=== PATIENT | male | born 1955 | race Two or more races ===

== ENCOUNTER 2018-06-20 15:22 | Emergency (ER) | payer MEDICAID ==
[~2018-06-20] VITALS: Ht 177.8 cm; Wt 104.3 kg
--- NOTE | 2018-06-20 15:27 | NUR ---
CONTACT INFO: [facility]:
--- NOTE | 2018-06-20 15:30 | NUR ---
BIB [facility] 79,SENT BY PMD TO R/O MENINGITIS DUE TO 1 WEEK FEVER/HEADACHE AND NECK STIFFNESS. PT AAOX4, DENIES CP, SOB, DIZZINESS, N/V/D @ THIS TIME. PT SEEN & EVAL'D BY DR. LOVE & WILL CONT TO MONITOR.
[2018-06-20] MEDS ORDERED: ACETAMINOPHEN ES 500 MG TABLET ONE (15:52)
[2018-06-20] MEDS ORDERED: ACET-868 PO (15:52)
[2018-06-20] MEDS ORDERED: IBUP-1955 PO (15:52)
[2018-06-20] MEDS ORDERED: IBUPROFEN 600 MG TABLET PO ONE ×2 (15:53→16:00)
[2018-06-20 15:57] LABS: BASOPHILS % (AUTO) 0.6 % (0.0-2.0); HEMATOCRIT 39 % (39-51); HEMOGLOBIN 13.3 g/dL (13.5-17.5); LYMPHOCYTES # (AUTO) 0.3 /CMM (0.8-4.8); LYMPHOCYTES % (AUTO) 8.8 % (20.0-44.0); MEAN CORPUSCULAR HGB CONC 35 g/dl (31.0-36.0); MEAN CORPUSCULAR VOLUME 89 fL (80-96); MONOCYTES # (AUTO) 0.3 /CMM (0.1-1.30); MONOCYTES % (AUTO) 9.7 % (2.0-12.0); NEUTROPHILS # (AUTO) 2.8 /CMM (1.8-8.9); NEUTROPHILS % (AUTO) 80.9 % (43.0-81.0); PLATELET COUNT (AUTO) 93 /CMM (150-450); RED BLOOD CELL COUNT(AUTO) 4.37 MIL/uL (4.5-6.0); WHITE BLOOD COUNT (AUTO) 3.5 K/uL (4.3-11.0)
[2018-06-20] MEDS ORDERED: ACETAMINOPHEN ES 500 MG TABLET PO ONE (16:00)
[2018-06-20] MEDS ORDERED: IV NS 0.9% 500 ML BAG IV ONE (16:00)
[2018-06-20 16:05] LABS: CALCIUM, SERUM 7.7 mg/dL (8.5-10.1); POTASSIUM 3.8 mmol/L (3.5-5.1)
--- NOTE | 2018-06-20 16:10 | NUR ---
MEDICATED PER ERMD ORDER, PT DONATO WELL.
[2018-06-20 16:44] LABS: BAND % (MANUAL) 1 % (0.0-5.0); LYMPHOCYTES % (MANUAL) 9 % (16-48); MONOCYTES % (MANUAL) 9 % (0-11.0); NEUTROPHILS % (MANUAL) 81 (42-76)
--- NOTE | 2018-06-20 16:49 | NUR ---
Patient is resting comfortably in bed with eyes closed. Easily aroused. VSS
[2018-06-20] MEDS ORDERED: LIDOCAINE 1% INJ 50 ML MDV IJ ONE (17:26)
--- NOTE | 2018-06-20 17:28 | NUR ---
VAN, HEARING CARE PROFESSIONAL @ BS FOR LUMBAR PUNCTURE PROCEDURE. PT DONATO WELL. SON @ BS ASSISTING WITH TRANSLATION.
[2018-06-20 18:36] LABS: CSF GLUCOSE 62 mg/dL (40-70); CSF PROTEIN 33.5 mg/dL (15-45)
--- NOTE | 2018-06-20 19:08 | NUR ---
Patient is resting comfortably in bed with eyes closed. Easily aroused. VSS
[2018-06-20 19:32] VITALS: BP 111/67
--- NOTE | 2018-06-20 19:32 | NUR ---
Patient discharged to home in stable condition. Written and verbal after care instructions given. Patient verbalizes understanding of instruction. IV removed. Catheter intact and site benign. Pressure and 4x4 applied to site. No bleeding noted.
== END 2018-06-20 19:33 | disposition home or self-care (01) ==
LOC: ER 15:24
DX: R51 Headache (principal); R50.9 Fever, unspecified
CPT/HCPCS: 36415; 80048-TC; 85025-TC; 85730-TC; 87070-TC; 87400; 89051-TC; J3490; J7040